=== PATIENT | female | born 1995 | race Two or more races ===

== ENCOUNTER 2020-11-29 19:10 | Emergency (ER) | payer OTHER ==
[2020-11-29] MEDS ORDERED: Acetaminophen/oxyCODONE 325-5 MG Tab PO ONE (19:11)
[2020-11-29] MEDS ORDERED: Cyclobenzaprine 10 MG Tab PO ONE (19:11)
[2020-11-30] MEDS ORDERED: Orphenadrine 60 MG/2 ML Inj IM ONE (02:21)
[2020-11-30] MEDS ORDERED: Ketorolac 30 MG/ML SDV IVPUSH ONE (02:21)
--- NOTE | 2020-11-30 02:26 | EDM.PDOC ---
ED HPI GENERAL MEDICAL PROBLEM - General Chief Complaint: Back Pain or Injury Stated Complaint: / INJURED BACK Time Seen by Provider: 11/30/20 02:00 Source of Information: Reports: Patient History Limitations: Reports: No Limitations - History of Present Illness INITIAL COMMENTS - FREE TEXT/NARRATIVE: ED with back pain started Sunday after lifting weights approximately 140# and lifted wrong. Reports here for [employer]. Incidient occurred during training exercise [place] pulling sensation in low back when lifting . ibuprofen not helping today, unable to get comfortable, tingling bilaterally to anterior thighs, greater on right. no numbness or weakness Pain worse with movement. No reported fever or chills. Treatments [employer]ILDING [employer]PER[employer]ENDENT: Reports: NSAIDS Lower Back Pain Score (Numeric/FACES): 5 - Related Data Allergies Allergy/AdvReac Type Severity Reaction Status Date / Time No Known Allergies Allergy Verified 11/30/20 02:06 Home Meds: Home Meds Control Pill DAILY 11/30/20 [History] Past Medical History - Past Health History Medical/Surgical History: Denies Medical/Surgical History Social & Family History - Family History Family Medical History: No Pertinent Family History - Tobacco Use Tobacco Use Status *Q: Never Tobacco User - Caffeine Use Caffeine Use: Reports: None - Recreational Drug Use Recreational Drug Use: No ED ROS GENERAL - Review of Systems Review Of Systems: Comprehensive ROS is negative, except as noted in HPI. ED EXAM,LOWER BACK PAIN/INJURY - Physical Exam Exam: See Below Exam Limited By: No Limitations General Appearance: Alert, Mild Distress Eye Exam: Bilateral Eye: EOMI Ears: Normal External Exam, Hearing Grossly Normal Nose: Normal Inspection Throat/Mouth: Normal Inspection, Normal Voice, No Airway Compromise Head: Atraumatic, Normocephalic Neck: Normal Inspection, Full Range of Motion Respiratory/Chest: No Respiratory Distress, Lungs Clear, Normal Breath Sounds Cardiovascular: Normal Peripheral Pulses, Regular Rate, Rhythm GI/Abdominal: Soft Rectal (Female) Exam: Deferred Back Exam: Muscle Spasm, Paraspinal Tenderness (lumbar), Vertebral Tenderness (low lumbar with palpation ), Other (no swelling, no gross deformity, no stepoff palpable) Extremities: Normal Inspection Neurological: Alert, Normal Mood/Affect, Normal Plantar Flexion, Normal Gait, Normal Reflexes, No Motor/Sensory Deficits, Oriented x 3, Straight Leg Raise (L), Straight Leg Raise (R). No: Saddle Anesthesia, Difficulty Walking DTR - Lower Extremities: 2+: Knee (R), Knee (L) Psychiatric: Normal Affect, Normal Mood Skin Exam: Warm, Dry, Intact, Normal Color Course - Vital Signs Last Recorded V/S: Last Vital Signs Temp 96.8 F L 11/30/20 02:07 Pulse 81 11/29/20 20:13 Resp 16 11/29/20 20:13 BP 130/86 11/29/20 20:13 Pulse Ox 99 11/29/20 20:13 - Orders/Labs/Meds Meds: Medications Discontinued Medications Generic Name Dose Route Start Last Admin Trade Name Macario PRN Reason Stop Dose Admin Cyclobenzaprine HCl Confirm 11/30/20 02:32 11/30/20 02:36 Cyclobenzaprine 10 Mg Tab Administered 11/30/20 02:33 Not Given Dose 10 mg .ROUTE .STK-MED ONE Cyclobenzaprine HCl 10 mg 11/29/20 19:11 Cyclobenzaprine 10 Mg Tab PO 11/29/20 19:12 .STK-MED ONE Ketorolac Tromethamine 30 mg 11/30/20 02:21 11/30/20 02:29 Ketorolac 30 Mg/Ml Sdv IVPUSH 11/30/20 02:22 30 mg ONETIME ONE Administration Orphenadrine Citrate 60 mg 11/30/20 02:21 11/30/20 02:29 Orphenadrine 60 Mg/2 Ml Inj IM 11/30/20 02:22 60 mg ONETIME ONE Administration Oxycodone/Acetaminophen Confirm 11/30/20 02:33 11/30/20 02:36 Acetaminophen/Oxycodone 325-5 Mg Tab Administered 11/30/20 02:34 Not Given Dose 2 tab .ROUTE .STK-MED ONE Oxycodone/Acetaminophen 2 tab 11/29/20 19:11 Acetaminophen/Oxycodone 325-5 Mg Tab PO 11/29/20 19:12 .STK-MED ONE Departure - Departure Time of Disposition: 02:23 Disposition: Home, Self-Care 01 Condition: Good Clinical Impression: Back pain, Muscle spasm - Discharge Information *PRESCRIPTION DRUG MONITORING PROGRAM REVIEWED*: No Instructions: Muscle Cramps and Spasms, [id number], Acute Back Pain, Adult, Back Injury Prevention, [id number] Forms: ED Department Discharge Additional Instructions: ice to low back rest flexeril /[id number] one every 8 hours as needed for spasm percocet 5/325 one every 6 hours as needed for severe pain tylenol 500mg alternate with ibuprofen 600mg every 4 hours as needed for mild to moderate pain clinic follow up later week, sooner if loose control of urine oe stool, worsening pain, Sepsis Event Note (ED) - Evaluation Sepsis Screening Result: No Definite Risk
[2020-11-30] MEDS ORDERED: Cyclobenzaprine 10 MG Tab ONE (02:32)
[2020-11-30] MEDS ORDERED: Acetaminophen/oxyCODONE 325-5 MG Tab ONE (02:33)
== END 2020-11-30 02:42 | disposition home or self-care (01) ==
LOC: DL.ED 19:10
DX: M62.830 Muscle spasm of back (principal)
CPT/HCPCS: 96372; 96374; 99283; 99283-25; A9270-GY; J1885; J2360